=== PATIENT | female | born 1975 | race Caucasian/White ===

== ENCOUNTER → 2022-10-11 | Outpatient (CLI) | payer BC ==
--- NOTE | 2022-10-12 18:56 | MM ---
Reason for Exam: Screening (asymptomatic). Baseline mammogram. Patient History: Menarche at age 10. First Full-Term at age 24. Patient has history of breast feeding. 10/02/2003, Bilateral Reduction. Maternal aunt had breast cancer, age 62. Maternal grandmother had breast cancer, age 75. Last menstrual period: 09/27/2022 Risk Values: Alma Rosa 5 year model risk: 1.1%. NCI Lifetime model risk: 11.1%. Prior Study Comparison: Patient's first Mammogram. Tissue Density: There are scattered fibroglandular densities. Findings: Analyzed By CAD. There is a circumscribed mostly circumscribed bilateral nodularity, 3 seen on the right and one on the left. This is an overall benign pattern. As there are no priors available for comparison purposes, six-month follow-up is recommended. No suspicious microcalcification or other discrete abnormality is seen. Overall Assessment: Probably benign, BI-RAD 3 Management: Diagnostic Mammogram of both breasts in 6 months. . Patient should continue monthly self-breast exams. A clinical breast exam by your physician is recommended on an annual basis. This exam should not preclude additional follow-up of suspicious palpable abnormalities. Note on Alma Rosa scores and lifetime risk: 1. A Alma Rosa score greater than 3% is considered moderate risk. If this is the case, consider specialist referral to assess eligibility for a risk reducing agent. 2. If overall lifetime risk for the development of breast cancer is 20% or higher, the patient may qualify for future screening with alternating mammogram and breast MRI. Electronically signed and approved by: Priscila Ray M.D. Radiologist
== END | disposition home or self-care (01) ==
LOC: RADMAMWWP 07:04
PROVIDERS: ATTEND Obstetrics & Gynecology
DX: Z12.31 Encounter for screening mammogram for malignant neoplasm of breast (principal); Z80.3 Family history of malignant neoplasm of breast
CPT/HCPCS: 77063; 77067

== ENCOUNTER → 2023-04-15 | Outpatient (CLI) | payer BC ==
--- NOTE | 2023-04-15 07:23 | MM ---
Reason for Exam: Follow-up at short interval from prior study. Last screening mammogram was performed 6 month(s) ago. Patient History: Menarche at age 10. First Full-Term at age 24. Premenopausal. Patient has history of breast feeding. 10/02/2003, Bilateral Reduction. Maternal aunt had breast cancer, age 62. Maternal grandmother had breast cancer, age 75. Last menstrual period: 04/11/2023 Risk Values: Alma Rosa 5 year model risk: 1.1%. NCI Lifetime model risk: 11.0%. Prior Study Comparison: 10/11/2022 Bilateral MG 3D screening mammo w/cad, [facility]. Tissue Density: There are scattered fibroglandular densities. Findings: Analyzed By CAD. No new suspicious masses, calcifications or distortions. Overall Assessment: Negative, BI-RAD 1 Management: Screening Mammogram of both breasts in 6 months. Results were given to the patient verbally at the time of exam. Patient should continue monthly self-breast exams. A clinical breast exam by your physician is recommended on an annual basis. This exam should not preclude additional follow-up of suspicious palpable abnormalities. Note on Alma Rosa scores and lifetime risk: 1. A Alma Rosa score greater than 3% is considered moderate risk. If this is the case, consider specialist referral to assess eligibility for a risk reducing agent. 2. If overall lifetime risk for the development of breast cancer is 20% or higher, the patient may qualify for future screening with alternating mammogram and breast MRI. Electronically signed and approved by: Alex Neumann DO
== END | disposition home or self-care (01) ==
LOC: RADMAMWWP 06:48
PROVIDERS: ATTEND Obstetrics & Gynecology
DX: R92.323 Mammographic fibroglandular density, bilateral breasts (principal); Z80.3 Family history of malignant neoplasm of breast
CPT/HCPCS: 77062; 77066

== ENCOUNTER → 2023-10-16 | Outpatient (CLI) | payer BC ==
--- NOTE | 2023-10-17 11:52 | MM ---
Reason for Exam: Screening (asymptomatic). Last screening mammogram was performed 6 month(s) ago. Patient History: Menarche at age 10. First Full-Term at age 24. Premenopausal. Patient has history of breast feeding. 10/02/2003, Bilateral Reduction. Maternal aunt had breast cancer, age 62. Maternal grandmother had breast cancer, age 75. Risk Values: Alma Rosa 5 year model risk: 1.1%. NCI Lifetime model risk: 11.0%. Prior Study Comparison: 10/11/2022 Bilateral MG 3D screening mammo w/cad, [facility]. 04/15/2023 Bilateral MG 3D diag mammo w/cad [facility]IS[facility], [facility]. Tissue Density: The breasts are heterogeneously dense, which may obscure small masses. Findings: Analyzed By CAD. There is no suspicious group of microcalcifications or new suspicious mass in either breast. Benign-appearing calcifications. Overall Assessment: Benign, BI-RAD 2 Management: Screening Mammogram of both breasts in 1 year. . Patient should continue monthly self-breast exams. A clinical breast exam by your physician is recommended on an annual basis. This exam should not preclude additional follow-up of suspicious palpable abnormalities. Note on Alma Rosa scores and lifetime risk: 1. A Alma Rosa score greater than 3% is considered moderate risk. If this is the case, consider specialist referral to assess eligibility for a risk reducing agent. 2. If overall lifetime risk for the development of breast cancer is 20% or higher, the patient may qualify for future screening with alternating mammogram and breast MRI. Electronically signed and approved by: Giancarlo Mcdaniels M.D. Radiologis
== END | disposition home or self-care (01) ==
LOC: RADMAMWWP 07:15
PROVIDERS: ATTEND Obstetrics & Gynecology
DX: Z12.31 Encounter for screening mammogram for malignant neoplasm of breast (principal); Z80.3 Family history of malignant neoplasm of breast
CPT/HCPCS: 77063; 77067

== ENCOUNTER → 2024-10-28 | Outpatient (CLI) | payer BC ==
--- NOTE | 2024-10-28 07:53 | MM ---
Reason for Exam: Screening (asymptomatic). Last mammogram was performed 1 year(s) and 1 month(s) ago. Patient History: Menarche at age 10. First Full-Term at age 24. Premenopausal. Patient has history of breast feeding. 10/02/2003, Bilateral Reduction. Maternal aunt had breast cancer, age 62. Maternal grandmother had breast cancer, age 75. Risk Values: Alma Rosa 5 year model risk: 1.2%. NCI Lifetime model risk: 10.8%. Prior Study Comparison: 10/11/2022 Bilateral MG 3D screening mammo w/cad, [facility]. 04/15/2023 Bilateral MG 3D diag mammo w/cad [facility], [facility]. 10/16/2023 Bilateral MG 3D screening mammo w/cad, [facility]. Tissue Density: The breasts are heterogeneously dense, which may obscure small masses. Findings: Analyzed By CAD. A few tiny benign-appearing round calcifications are redemonstrated scattered throughout the bilateral breasts. Benign appearing bilateral axillary lymph nodes are again seen. There is no suspicious new group of microcalcifications or new suspicious mass in either breast. Overall Assessment: Benign, BI-RAD 2 Management: Screening Mammogram of both breasts in 1 year. . Patient should continue monthly self-breast exams. A clinical breast exam by your physician is recommended on an annual basis. This exam should not preclude additional follow-up of suspicious palpable abnormalities. Note on Alma Rosa scores and lifetime risk: 1. A Alma Rosa score greater than 3% is considered moderate risk. If this is the case, consider specialist referral to assess eligibility for a risk reducing agent. 2. If overall lifetime risk for the development of breast cancer is 20% or higher, the patient may qualify for future screening with alternating mammogram and breast MRI. [facility], , 10/28/2024 7:50 AM. Electronically signed and approved by: Shorty Blood M.D.
== END | disposition home or self-care (01) ==
LOC: RADMAMWWP 07:17
PROVIDERS: ATTEND Obstetrics & Gynecology
DX: Z12.31 Encounter for screening mammogram for malignant neoplasm of breast (principal); R92.333 Mammographic heterogeneous density, bilateral breasts; R92.1 Mammographic calcification found on diagnostic imaging of breast; Z80.3 Family history of malignant neoplasm of breast
CPT/HCPCS: 77063; 77067

== ENCOUNTER → 2024-11-27 | Day surgery (SDC) | payer BC ==
[~2024-11-27] MED LIST: PROPOFOL 10 MG/ML 20 ML VIAL IV ONE
[2024-11-27] MEDS: IV FLUID CONTINUATION 1,000 ML IV ONE (12:21)
[2024-11-27 12:34] VITALS: RESP 16; TEMP 98.3
[2024-11-27 12:42] LABS: Glucose,Whole Blood 71 mg/dL (70-110)
[2024-11-27] MEDS: LACTATED RINGERS 1,000 ML IV SCH (12:43)
--- NOTE | 2024-11-27 13:55 | P.PCN ---
Date of Procedure: 11/27/24 Procedure(s) Performed: BRIEF HISTORY: Patient is a 49-year-old pleasant white female scheduled for an elective colonoscopy as a part of screening for colon cancer. PROCEDURE PERFORMED: Colonoscopy with biopsy. PREOPERATIVE DIAGNOSIS: Screening for colon cancer. IV sedation per Anesthesia. PROCEDURE: After informed consent was obtained, the patient, was brought into the endoscopy unit. IV sedation was administered by Anesthesia under continuous monitoring. Digital rectal examination was normal. Initially the Olympus CF-160 flexible video colonoscope was then inserted in the rectum, gradually advanced into the cecum without any difficulty. Careful examination was performed as the scope was gradually being withdrawn. Ileocecal valve and the appendiceal orifice were visualized and appeared normal. Prep was good. Mucosa of the cecum, had a 4 mm sessile polyp removed by cold biopsy. Rest of the ascending colon, transverse colon, descending colon, sigmoid colon, and rectum appeared normal. Retroflexion was performed in the rectum and no lesions were seen. The patient tolerated the procedure well. IMPRESSION: 4 mm cecal polyp status post cold biopsy Rest of the colon appeared normal RECOMMENDATIONS: Findings of this examination were discussed with the patient as well as her family. She was advised to follow-up with the biopsy results. If the biopsy was adenoma she can have repeat colonoscopy in 5 years..
[2024-11-27 14:13] LABS: Glucose,Whole Blood 72 mg/dL (70-110)
[2024-11-27 14:14] VITALS: BP 125/79; PULSE 78
[2024-11-27 14:24] LABS: Glucose,Whole Blood 79 mg/dL (70-110)
== END ==
LOC: ORWHC2ENDO 11:02
PROVIDERS: ATTEND Internal Medicine Gastroenterology
DX: Z12.11 Encounter for screening for malignant neoplasm of colon (principal); K63.5 Polyp of colon; I10 Essential (primary) hypertension; E78.5 Hyperlipidemia, unspecified; Z79.85 Long-term (current) use of injectable non-insulin antidiabetic drugs; Z79.899 Other long term (current) drug therapy
CPT/HCPCS: 81025; 88305; 45380; J2704